=== PATIENT | male | born 1985 | race Caucasian/White ===

== ENCOUNTER 2016-09-10 05:22 | Day surgery (SDC) | payer BC ==
[2016-09-08 13:17] LABS: BUN (BLOOD UREA NITROGEN) 11 MG/DL (6-23); CALCIUM, SERUM 9.5 MG/DL (8.5-10.4); CHLORIDE, SERUM 105 MMOL/L (96-112); CO2 (CARBON DIOXIDE) 25 MMOL/L (24-34); CREATININE 0.71 MG/DL (0.70-1.30); GFR AFRICAN AMERICAN 147 ML/MIN (>=60); GFR NON AFRICAN AMERICAN 127 ML/MIN (>=60); GLUCOSE, SERUM 100 MG/DL (60-99); POTASSIUM, SERUM 4.8 MMOL/L (3.5-5.3); SODIUM, SERUM 140 MMOL/L (135-148)
--- NOTE | ~2016-09-10 | OP ---
Record Of Operation [facility] [address] [place]. [address] NAME: EM SALDIVAR II : 87 STATUS : REG [facility] PAT#: [id number] AGE: 30 ADM/REG DATE : 09/10/16 MR#: [id number] REPORT SERV DATE: 09/10/16 DICTATED BY: EM MORENO. DATE: 09/10/16 REPORT STATUS : Draft TRANSCRIBED BY: MODChristina DATE: 09/10/16 DATE OF PROCEDURE: 09/10/2016 PREOPERATIVE DIAGNOSIS: Chronic tonsillitis. POSTOPERATIVE DIAGNOSIS: Chronic tonsillitis. OPERATIVE PROCEDURE PERFORMED: Bilateral tonsillectomy. INDICATIONS AND SIGNIFICANT HISTORY: The patient is a 30-year-old male with a significant history of multiple episodes of frequent tonsillith production, sore throats, and acute tonsillitis. He was felt to benefit from tonsillectomy and was scheduled for such. OPERATIVE PROCEDURE AND FINDINGS: After informed consent was obtained, the patient was brought to the operating room and placed on the operating table in a supine position. At which point, general endotracheal anesthesia was induced by Anesthesia Service and the bed was turned 90 degrees toward the ram car operator. The Armond-Denilson mouth gag was inserted into the oral cavity and red rubber catheter in the left naris. The mirror inspection of the nasopharynx revealed no adenoid pad. Attention was turned toward the left tonsil, which was grasped at the superior pole, retracted toward midline and dissected free of its tonsillar fossa using Bovie cautery. The process was repeated for the right tonsil. Hemostasis was assured throughout using suction Bovie cautery after identifying no additional bleeding. The patient was turned back toward anesthesia, aroused from anesthesia, and taken to the postanesthesia care unit in satisfactory condition. COMPLICATIONS: None. ESTIMATED BLOOD LOSS: Less than 5 mL. IV FLUIDS: Per Anesthesia. ANUJ/AURORA Em Moreno M.D. / [id number] CC: Papito Sommers M.D.
[~2016-09-10 05:22] MED LIST: FLONASE NAS; ZYRTEC ALLGY10 MG PO
== END 2016-09-10 16:33 | disposition home or self-care (01) ==
LOC: SDC 05:22
PROVIDERS: Otolaryngology
PROC: 0CTPXZZ Resection of Tonsils, External Approach (ICD-10-PCS; principal; 2016-09-10 06:45)
DX: J03.80 Acute tonsillitis due to other specified organisms (principal); B96.89 Other specified bacterial agents as the cause of diseases classified elsewhere; E66.9 Obesity, unspecified; K21.9 Gastro-esophageal reflux disease without esophagitis; Z88.1 Allergy status to other antibiotic agents; Z88.2 Allergy status to sulfonamides; Z87.891 Personal history of nicotine dependence; Z79.51 Long term (current) use of inhaled steroids; Z79.899 Other long term (current) drug therapy
CPT/HCPCS: 36415; 80048; 88304; 93005; A9270-GY; J0330; J2250; J2270; J2405; J3010